=== PATIENT | female | born 1995 | race Caucasian/White ===

== ENCOUNTER 2017-03-20 22:19 | Emergency (ER) | payer OTHER | END 2017-03-21 00:44 | disposition home or self-care (01) | LOC: FER 22:19 | DX: S40.012A Contusion of left shoulder, initial encounter (principal); S70.12XA Contusion of left thigh, initial encounter; F41.9 Anxiety disorder, unspecified; Z79.899 Other long term (current) drug therapy; V80.010A Animal-rider injured by fall from or being thrown from horse in noncollision accident, initial encounter; Y92.830 Public park as the place of occurrence of the external cause | CPT/HCPCS: 73030; 73552; 99283 ==